=== PATIENT | female | born 1985 | race Caucasian/White ===

== ENCOUNTER 2023-07-05 19:22 | Emergency (ER) | payer OTHER ==
[2023-07-05 20:00] LABS: Specific Gravity 1.018 (1.005-1.030)
[2023-07-05 20:05] LABS: Specific Gravity 1.018 (1.005-1.030); Urine Bacteria <20 /HPF (<20); Urine Bilirubin NEGATIVE (Negative); Urine Blood Negative (Negative); Urine Clarity Extremely Turbid (Clear); Urine Color Light-Yellow (Yellow); Urine Culture Reflex Order NOT NEEDED; Urine Glucose NEGATIVE (Negative); Urine Ketones NEGATIVE (Negative); Urine Microscopic Reflex YN ORDER UMIC; Urine Mucus Slight /HPF (None Seen); Urine Nitrite NEGATIVE (Negative); Urine Protein NEGATIVE (Negative); Urine RBC <5 /HPF (None Seen); Urine Urobilinogen Normal (Normal); Urine WBC <5 /HPF (<5); Urine pH 6.5 (5.0-7.0)
--- NOTE | 2023-07-05 20:20 | RAD REPORT ---
EXAM DESCRIPTION: US - Transvaginal Study Probe - 07/05/2023 8:10 pm CLINICAL HISTORY: PAIN Pelvic pain. COMPARISON: No comparisons FINDINGS: The uterus is normal in size, shape and echotexture. The uterus measures 7.4 x 5.1 x 4.4 c m. The endometrial stripe measures thickened with cystic internal areas measuring 2.6 cm. Both ovaries are normal in size, shape and echotexture. The right ovary measures . The left ovary m easures . No ovarian or parovarian lesions. No adnexal masses. Normal Doppler blood flow was demonstrated to both ovaries. No significant pelvic ascites. IMPRESSION: Thickened endometrial stripe up to 2.6 cm with internal cystic areas may represent a lar ge polyp or cystic hyperplasia.Follow-up hysteroscopy recommended for direct visualization.
--- NOTE | 2023-07-05 22:17 | RAD REPORT ---
EXAM DESCRIPTION: CT - Abdomen Pelvis Wo Contrast - 07/05/2023 10:10 pm CLINICAL HISTORY: Abdominal pain. ABD PAIN COMPARISON: No comparisons TECHNIQUE: CT imaging of the abdomen and pelvis was performed without contrast. Solid organ, bowel a nd vascular assessment is limited due to lack of IV and oral contrast. All CT scans are performed using dose optimization technique as appropriate and may include automated exposure control or mA/KV adjustment according to patient size. FINDINGS: The lower lung fierro are clear. The liver, spleen, pancreas, adrenal glands and kidneys are within normal limits for a limited non-co ntrast examination. No bowel obstruction, free air, free fluid or abscess. There is a 4-5 cm segment of the sigmoid colon in the left lower quadrant which is moderately inflamed. Several diverticula are present in the ifeoma on. Nonvisualized appendix. The osseous structures are within normal limits.Endometrial stripe appears thickened. IMPRESSION: Mild to moderate acute diverticulitis suspected left lower quadrant sigmoid colon. No ab scess is evident. Consider followup colonoscopy after appropriate therapy to directly visualize this region. A limited non-contrast examination was performed as detailed.
[2023-07-05 22:45] LABS: Absolute Eosinophils 0.3 K/uL (0-0.5); Absolute Lymphocytes (CBC) 3.7 K/uL (0.7-4.9); Absolute Monocytes 0.7 K/uL (0.1-1.3); Absolute Neutrophil 6.2 K/uL (1.8-8.0); Basophils % 0.4 % (0-1.3); Hematocrit 39.5 % (36.0-45.0); Hemoglobin 13.4 g/dL (12.0-15.0); Lymphocytes % 33.9 % (15.3-44.8); MCH 28.9 pg (27.0-35.0); MCHC 33.8 g/dL (32.0-36.0); MCV 85.6 fL (80-100); MPV 8.1 fL (7.6-11.3); Monocytes % 6.2 % (3.3-12.3); Neutrophils % 56.5 % (41.7-73.7); Platelets 371 thou/uL (152-406); RBC Red Blood Cell Count 4.62 M/uL (3.86-4.86); Red Cell Distribution Width 13.3 % (12.1-15.2)
[2023-07-05 22:57] LABS: Anion Gap 7.6 mEq/L (5.0-15.0); Potassium 3.6 mEq/L (3.5-5.1)
--- NOTE | 2023-07-05 23:02 | EDPHYS ---
Physician Documentation [facility] Name: Merissa Acevedo Age: 37 yrs Sex: Female : 1985 Arrival Date: 07/05/2023 Time: 19:22 Bed 18 Private MD: ED Physician Ramses Cross HPI: 07/04 19:28 This 37 yrs old Female presents to ER via Unassigned with complaints of Pelvic Pain. kb 19:28 Pt is a 37 year old female who presents for left lower abd/pelvic pain that started kb about 5 days ago and got worse 3 days ago. Denies n/v/d, vaginal discharge. Patient reports she has had vaginal spotting. States pain initially started when she lifted something heavy at work and is just gotten worse. States pain is worse with movement.. 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 - Infectious Disease History:: Denies. - Social history:: Smoking status: Patient denies any tobacco usage or history of. Patient/guardian denies using alcohol, street drugs. ROS: 19:30 Constitutional: As per HPI kb Exam: 07/05 00:47 Constitutional: This is a well developed, well nourished patient who is awake, alert, kb and in no acute distress. Head/Face: Normocephalic, atraumatic. ENT: Moist Mucous membranes Cardiovascular: Regular rate Respiratory: Respirations even and unlabored. No increased work of breathing. Talking in full sentences Abdomen/GI: Soft, non-tender. No distention Skin: Warm, dry with normal turgor. Normal color. MS/ Extremity: Pulses equal, no cyanosis. Neurovascular intact. Full, normal range of motion. Neuro: Awake and alert, GCS 15, oriented to person, place, time, and situation. Moves all extremities. Normal gait. Vital Signs: 07/04 19:40 BP 136 / 101; Pulse 97; Resp 16; Temp 99(O); Pulse Ox 99% on R/A; Weight 107.05 kg; tl4 Height 5 ft. 4 in. ; Pain 8/10; 20:40 BP 118 / 54; Pulse 88; Resp 17 S; Pulse Ox 97% on R/A; ha1 21:40 BP 127 / 90; Pulse 85; Resp 17 S; Pulse Ox 98% on R/A; ha1 22:40 BP 127 / 95; Pulse 82; Resp 17 S; Pulse Ox 98% on R/A; ha1 23:18 BP 125 / 84; Pulse 81; Resp 16 S; Temp 97.9(T); Pulse Ox 98% ; ha1 19:40 Body Mass Index 40.51 (107.05 kg, 162.56 cm) tl4 19:40 Pain Scale: Adult tl4 MDM: 19:26 Patient medically screened. kb 07/05 00:47 Differential diagnosis: Muscle strain, ovarian cyst, diverticulitis. Data reviewed: kb vital signs, nurses notes. Counseling: I had a detailed discussion with the patient and/or guardian regarding the historical points, exam findings, and any diagnostic results supporting the discharge/admit diagnosis, lab results, radiology results, the need for outpatient follow up, a family practitioner, to return to the emergency department if symptoms worsen or persist or if there are any questions or concerns that arise at home. 07/04 19:33 Order name: Test, Urine; Complete Time: 20:19 kb 07/04 19:33 Order name: Urinalysis w/ reflexes; Complete Time: 20:19 kb 07/04 22:25 Order name: CBC with Diff; Complete Time: 22:50 kb 07/04 22:25 Order name: Basic Metabolic Panel; Complete Time: 23:01 kb 07/04 19:33 Order name: US Transvaginal Study (Probe); Complete Time: 20:21 kb 07/04 21:29 Order name: CT Abd/Pelvis - Without Contrast; Complete Time: 22:20 kb Administered Medications: 07/04 23:00 Drug: Ketorolac IVP 15 mg IVP once Route: IVP; Site: right antecubital; ha1 23:21 Follow up: Response: No adverse reaction; Marked relief of symptoms; Pain is decreased ha1 23:04 Drug: Ciprofloxacin PO 500 mg PO once Route: PO; ha1 23:21 Follow up: Response: No adverse reaction ha1 23:04 Drug: metroNIDAZOLE PO 500 mg PO once Route: PO; ha1 23:21 Follow up: Response: No adverse reaction ha1 Disposition: 07/05 19:57 Co-signature as Attending Physician, Ramses Cross MD I reviewed the patient's care rt provided by the Advanced Practice Provider and agree with the diagnosis and treatment plan. Disposition Summary: 07/05/23 23:01 Discharge Ordered Notes: Location: Home kb Condition: Stable kb Diagnosis - Diverticulitis of intestine, part unspecified, without perforation or abscess kb without bleeding Followup: kb - With: Emergency Department - When: As needed - Reason: Worsening of condition Followup: kb - With: Private Physician - When: 2 - 3 days - Reason: Recheck today's complaints, Continuance of care, Re-evaluation by your physician Discharge Instructions: - Discharge Summary Sheet kb - Diverticulitis, [id number] kb Forms: - Medication Reconciliation Form kb - Antibiotic Education kb - Prescription Opioid Use kb - Patient Portal Instructions kb - Leadership Thank You Letter kb Prescriptions: - Flagyl 500 mg Oral Tablet - take 1 tablet ORAL route every 8 hours for 10 days; 30 tablet; Refills: 0, kb Product Selection Permitted - Cipro 500 mg Oral tablet - take 1 tablet ORAL route every 12 hours for 10 days; 20 tablet; Refills: 0, kb Product Selection Permitted - Diclofenac Sodium 75 mg Oral tablet, delayed release (enteric coated) - take 1 tablet ORAL route 2 times per day As needed; 30 tablet; Refills: 0, kb Product Selection Permitted Signatures: Dispatcher [employer] [facility] Fatemeh Montalvo FNP-C FNP-Naheed Sterling RN RN ha1 Ramses Cross MD MD rt Evert Whiteside RN RN tl4 Corrections: (The following items were deleted from the chart) 07/04 19:33 19:33 Transvaginal Study (Probe)+US.RAD.BRZ ordered. [facility] 19:33 19:33 Test, Urine+UC.LAB.BRZ ordered. [facility] 19:33 19:33 Urinalysis+U.LAB.BRZ ordered. [facility] 07/05 00:47 07/04 19:28 Pt is a 37 year old female who presents for left lower abd/pelvic pain that kb started about 5 days ago and got worse 3 days ago. Denies n/v/d, vaginal discharge. . kb
--- NOTE | 2023-07-05 23:02 | ER ---
Nurse's Notes [facility] Name: Merissa Acevedo Age: 37 yrs Sex: Female : 1985 Arrival Date: 07/05/2023 Time: 19:22 Bed 18 Private MD: Diagnosis: Diverticulitis of intestine, part unspecified, without perforation or abscess without bleeding Presentation: 07/04 19:40 Chief complaint: Patient states: Pt c/o lower abdominal/pelvic pain x 3 days. Pt states tl4 she has very light vaginal bleeding. Pt denies urinary sxs. Coronavirus screen: At this time, the client does not indicate any symptoms associated with coronavirus-19. Ebola Screen: No symptoms or risks identified at this time. Initial Sepsis Screen: Does the patient meet any 2 criteria? No. Patient's initial sepsis screen is negative. Does the patient have a suspected source of infection? No. Patient's initial sepsis screen is negative. Risk Assessment: Do you want to hurt yourself or someone else? Patient reports no desire to harm self or others. Onset of symptoms was July 02, 2023. 19:40 Method Of Arrival: Ambulatory tl4 19:40 Acuity: ERICA 3 tl4 Triage Assessment: 19:42 General: Appears uncomfortable, Behavior is calm, cooperative. Pain: Complains of pain tl4 in pelvis. EENT: No signs and/or symptoms were reported regarding the EENT system. Neuro: Level of Consciousness is awake, alert, obeys commands, Oriented to person, place, time, situation, Moves all extremities. Full function Gait is steady, Speech is normal. Cardiovascular: Capillary refill < 3 seconds Patient's skin is warm and dry. Respiratory: Airway is patent Respiratory effort is even, unlabored, Respiratory pattern is regular, symmetrical. GI: Reports upper abdominal pain. : No signs and/or symptoms were reported regarding the genitourinary system. Derm: No signs and/or symptoms reported regarding the dermatologic system. Musculoskeletal: No signs and/or symptoms reported regarding the musculoskeletal system. 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 - Infectious Disease History:: Denies. - Social history:: Smoking status: Patient denies any tobacco usage or history of. Patient/guardian denies using alcohol, street drugs. Screenin:17 [facility] ED Fall Risk Assessment (Adult) History of falling in the last 3 months, ha1 including since admission No falls in past 3 months (0 pts) Confusion or Disorientation No (0 pts) Intoxicated or Sedated No (0 pts) Impaired Gait No (0 pts) Mobility Assist Device Used No (0 pt) Altered Elimination No (0 pt) Score/Fall Risk Level 0 - 2 = Low Risk Oriented to surroundings, Maintained a safe environment, Educated pt \T\ family on fall prevention, incl call for assistance when getting out of bed, Hourly rounding (assess needs \T\ fall precautionary measures) done. Abuse screen: Denies threats or abuse. Denies injuries from another. Nutritional screening: No deficits noted. 20:18 Tuberculosis screening: No symptoms or risk factors identified. ha1 Assessment: 19:35 General: Appears uncomfortable, Behavior is calm, cooperative. Pain: Complains of pain ha1 in left femoral area Pain does not radiate. Pain currently is 7 out of 10 on a pain scale. Quality of pain is described as aching, crampy, Pain began 2-3 days ago. Neuro: Level of Consciousness is awake, alert, obeys commands, Oriented to person, place, time, situation. Cardiovascular: Patient's skin is warm and dry. Respiratory: Airway is patent Respiratory effort is even, unlabored, Respiratory pattern is regular, symmetrical. GI: No signs and/or symptoms were reported involving the gastrointestinal system. Abdomen is round non-distended. : Urine is clear, Reports pain in left lower quadrant(s) vaginal bleeding that is light flow. Derm: Skin is pink, warm \T\ dry. 20:40 Reassessment: Patient and/or family updated on plan of care and expected duration. Pain ha1 level reassessed. Patient is alert, oriented x 3, equal unlabored respirations, skin warm/dry/pink. 21:50 Reassessment: Patient and/or family updated on plan of care and expected duration. Pain ha1 level reassessed. Patient is alert, oriented x 3, equal unlabored respirations, skin warm/dry/pink. 22:40 Reassessment: Patient and/or family updated on plan of care and expected duration. Pain ha1 level reassessed. Patient is alert, oriented x 3, equal unlabored respirations, skin warm/dry/pink. 23:18 Reassessment: Patient and/or family updated on plan of care and expected duration. Pain ha1 level reassessed. Patient is alert, oriented x 3, equal unlabored respirations, skin warm/dry/pink. Patient states feeling better. Patient states symptoms have improved. Vital Signs: 19:40 BP 136 / 101; Pulse 97; Resp 16; Temp 99(O); Pulse Ox 99% on R/A; Weight 107.05 kg; tl4 Height 5 ft. 4 in. ; Pain 8/10; 20:40 BP 118 / 54; Pulse 88; Resp 17 S; Pulse Ox 97% on R/A; ha1 21:40 BP 127 / 90; Pulse 85; Resp 17 S; Pulse Ox 98% on R/A; ha1 22:40 BP 127 / 95; Pulse 82; Resp 17 S; Pulse Ox 98% on R/A; ha1 23:18 BP 125 / 84; Pulse 81; Resp 16 S; Temp 97.9(T); Pulse Ox 98% ; ha1 19:40 Body Mass Index 40.51 (107.05 kg, 162.56 cm) tl4 19:40 Pain Scale: Adult tl4 ED Course: 19:25 Patient arrived in ED. ra3 19:26 Fatemeh Montal[facility]C [facility] kb 19:26 Ramses Cross MD is Attending Physician. kb 19:34 Patient has correct armband on for positive identification. Placed in gown. Bed in low ha1 position. Call light in reach. Side rails up X 1. 19:41 Triage completed. tl4 19:43 Arm band placed on left wrist. tl4 19:49 Test, Urine Sent. ha1 19:49 Urinalysis w/ reflexes Sent. ha1 19:52 Akhil Grande, NICHOL is Primary Nurse. rv 20:12 US Transvaginal Study (Probe) In Process Unspecified. EDMS 20:15 Naheed Torres, NICHOL is Primary Nurse. ha1 22:12 CT Abd/Pelvis - Without Contrast In Process Unspecified. EDMS 22:15 Inserted saline lock: 20 gauge in right antecubital area, using aseptic technique. ha1 Blood collected. 22:45 Basic Metabolic Panel Sent. ha1 22:45 CBC with Diff Sent. ha1 23:19 No provider procedures requiring assistance completed. IV discontinued, intact, ha1 bleeding controlled, No redness/swelling at site. Pressure dressing applied. 23:20 Provided Education on: diverticulitis . ha1 Administered Medications: 23:00 Drug: Ketorolac IVP 15 mg IVP once Route: IVP; Site: right antecubital; ha1 23:21 Follow up: Response: No adverse reaction; Marked relief of symptoms; Pain is decreased ha1 23:04 Drug: Ciprofloxacin PO 500 mg PO once Route: PO; ha1 23:21 Follow up: Response: No adverse reaction ha1 23:04 Drug: metroNIDAZOLE PO 500 mg PO once Route: PO; ha1 23:21 Follow up: Response: No adverse reaction ha1 Medication: 20:17 VIS not applicable for this client. ha1 Outcome: 23:01 Discharge ordered by MD. lozano 23:20 Discharged to home ambulatory, with family, ha1 23:20 Condition: stable 23:20 Discharge instructions given to patient, family, Instructed on discharge instructions, follow up and referral plans. medication usage, Demonstrated understanding of instructions, follow-up care, medications, Prescriptions given X 3, 23:21 Patient left the ED. ha1 Signatures: Dispatcher [employer] EDMS Fatemeh Montalvo, ESPERANZA-Roberto ETL ANALYST DEVELOPER-Akhil Pompa RN RN rv Ayala, Heidy, RN RN 1 Evert Whiteside RN RN tl4 Carola Thibodeaux
[2023-07-05] MEDS ORDERED: metroNIDAZOLE 500 MG TABLET ONE (23:08)
[2023-07-05] MEDS ORDERED: CIPROFLOXACIN HCL 500 MG TAB ONE (23:08)
[2023-07-05] MEDS ORDERED: KETOROLAC 30 MG/ML INJ ONE (23:10)
[2023-07-05 23:42] VITALS: BP 125/84; TEMP 97.9; O2SAT 98
== END 2023-07-05 23:21 | disposition home or self-care (01) ==
LOC: ER 19:22
DX: K57.32 Diverticulitis of large intestine without perforation or abscess without bleeding (principal)
CPT/HCPCS: 36415; 74176; 76830; 80048; 81001; 81025; 85025